=== PATIENT | female | born 1960 | race Caucasian/White ===

== ENCOUNTER 2017-04-03 12:22 | Inpatient (IN) | payer OTHER ==
[~2017-04-03] VITALS: Ht 157.5 cm; Wt 46.5 kg
[~2017-04-03 12:22] MED LIST: ALBU6.7H INH; LOMO2.5T PO
[2017-04-03 12:23] VITALS: BP 170/70; PULSE 97; RESP 22; TEMP 98.2; O2SAT 93
[2017-04-03] MEDS ORDERED: IOHEXOL 350 MG/ML 10 ML VIAL (for RAD DIAG) IVCONTRAST ONE (12:23)
--- NOTE | 2017-04-03 13:02 | RADRPT ---
EXAM DATE/TIME: 04/03/2017 12:55 [facility] COMPARISON: CHEST SINGLE AP, July 06, 2015, 10:25. INDICATIONS : Cough and shortness of breath. MEDICAL HISTORY : Carcinoma, breast. Bowel resection SURGICAL HISTORY : Appendectomy. Lumpectomy ENCOUNTER: Initial ACUITY: 2 days PAIN SCORE: 0/10 LOCATION: Bilateral chest FINDINGS: PA and lateral views of the chest demonstrate a normal-sized cardiac silhouette with stable mildly en larged central pulmonary arteries bilaterally. Lungs are hyperexpanded. No effusion, consolidation, o r pneumothorax is identified. The bones and soft tissues demonstrate no acute finding. CONCLUSION: 1. No acute cardiopulmonary abnormality is identified. 2. Hyperexpansion of the lungs could indicate obstructive airways disease. The central pulmonary yari fay remain enlarged bilaterally. Cal Castro MD on April 03, 2017 at 12:58 Board Certified Radiologist. This report was verified electronically.
[2017-04-03 13:33] LABS: AUTOMATED NEUTROPHIL # 10.7 TH/MM3 (1.8-7.7); BASOPHIL % 0.4 % (0.0-2.0); EOSINOPHIL # 0.1 TH/MM3 (0-0.4); EOSINOPHIL % 0.6 % (0.0-4.0); HEMATOCRIT 44.8 % (35.0-46.0); HEMOGLOBIN 15.3 GM/DL (11.6-15.3); LYMPH % 9.6 % (9.0-44.0); LYMPHOCYTE # 1.2 TH/MM3 (1.0-4.8); MEAN CELL VOLUME 96.3 FL (80.0-100.0); MEAN CORPUSCULAR HEMOGLOBIN 32.9 PG (27.0-34.0); MEAN CORPUSCULAR HGB CONC 34.2 % (32.0-36.0); MEAN PLATELET VOLUME 7.7 FL (7.0-11.0); MONO % 4.6 % (0.0-8.0); MONOCYTE # 0.6 TH/MM3 (0-0.9); NEUT % 84.8 % (16.0-70.0); PLATELET COUNT 248 TH/MM3 (150-450); RED BLOOD COUNT 4.66 MIL/MM3 (4.00-5.30); RED CELL DISTRIBUTION WIDTH 12.8 % (11.6-17.2); WHITE BLOOD COUNT 12.6 TH/MM3 (4.0-11.0)
[2017-04-03 13:45] LABS: PROTHROMBIN TIME - PATIENT 9.8 SEC (9.8-11.6)
[2017-04-03 13:52] LABS: BICARBONATE 24.6 MEQ/L (21.0-32.0); BLOOD UREA NITROGEN 8 MG/DL (7-18); CALCIUM 9.2 MG/DL (8.5-10.1); CHLORIDE 104 MEQ/L (98-107); CREATININE 0.53 MG/DL (0.50-1.00); GLOMERULAR FILTRATION RATE 118 ML/MIN (>89); GLUCOSE,RANDOM 109 MG/DL (74-106); SODIUM (NA) 137 MEQ/L (136-145)
[2017-04-03 13:55] LABS: TROPONIN I LESS THAN 0.02 NG/ML (0.02-0.05)
[2017-04-03] MEDS: RESP: ALBUTEROL 2.5 MG/IPRATROPIUM 0.5 MG NEB (SCH) INH ×2 (14:42→14:43)
[2017-04-03] MEDS ORDERED: SODIUM CHLORIDE 0.9% FLUSH 10 ML FLUSH IVF PRN (14:45)
[2017-04-03] MEDS ORDERED: SODIUM CHLORID 0.9% 500 ML INJ 500 ML IV ONE (14:45)
[2017-04-03] MEDS ORDERED: methylPREDNISolone SOD SUCC 125 MG/2 ML VIAL IV PUSH ONE (14:45)
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
[2017-04-03 15:00] VITALS: RESP 22; O2SAT 84
--- NOTE | 2017-04-03 15:48 | RADRPT ---
EXAM DATE/TIME: 04/03/2017 15:23 [facility] COMPARISON: CHEST PA & LAT, April 03, 2017, 12:55. INDICATIONS : Short of breath. Cough. IV CONTRAST: 50 cc Omnipaque 350 (iohexol) IV RADIATION DOSE: 5.21 CTDIvol (mGy) MEDICAL HISTORY : Cardiovascular disease. SURGICAL HISTORY : Hole repair in heart. ENCOUNTER: Initial ACUITY: 1 day PAIN SCALE: 2/10 LOCATION: chest TECHNIQUE: Volumetric scanning of the chest was performed using a pulmonary embolism protocol MIP images were re constructed. Using automated exposure control and adjustment of the mA and/or kV according to patien t size, radiation dose was kept as low as reasonably achievable to obtain optimal diagnostic quality images. DICOM format image data is available electronically for review and comparison. Follow-up recommendations for detected pulmonary nodules are based at a minimum on nodule size and pa tient risk factors according to Fleischner Society Guidelines. FINDINGS: PULMONARY ARTERIES: No filling defects are seen in the pulmonary arteries through the segmental level. However, pulmonary artery both appear to be somewhat prominent with calcification of the pulmonic valve. LUNGS: There is no consolidation or pneumothorax . No concerning pulmonary nodule is visualized. There is s ome volume loss in the left hemithorax. Minimal subpleural fibrotic changes are identified posteriorl y and posteromedially in the right apex PLEURAE: There is no pleural thickening or pleural effusion. MEDIASTINUM: There is good visualization of the great vessels of the middle mediastinum. No evidence of mediastin al or hilar adenopathy/mass. MUSCULOSKELETAL: Within normal limits for patient age. MISCELLANEOUS: The visualized upper abdominal organs demonstrate no acute abnormality. CONCLUSION: 1. No acute infiltrate. There is some volume loss in the left hemithorax which appears chronic. 2. Prominence of the pulmonary arteries bilaterally with evidence of calcification of the pulmonary v alve. Finding could be indicative of some degree of pulmonary artery hypertension 3. Minimal subpleural fibrotic/emphysematous changes isolated to the posterior and posteromedial aspe ct of the right lung apex. Mando Rodriguez MD on April 03, 2017 at 15:33 Board Certified Radiologist. This report was verified electronically.
[2017-04-03 16:28] VITALS: BP 131/71; PULSE 110; RESP 24; O2SAT 96
[2017-04-03 17:55] VITALS: BP 142/66; PULSE 100; RESP 22; O2SAT 94
[2017-04-03] MEDS ORDERED: SODIUM CHLORIDE 0.9% FLUSH 10 ML FLUSH IV FLUSH PRN ×2 (18:00→19:00)
--- NOTE | 2017-04-03 18:40 | HHI.HP ---
HPI Service Family Medicine Primary Care Physician Unknown Admission Diagnosis hypoxia, COPD exacerbation Diagnoses: International Travel<30 Days: No Contact w/Intl Traveler<30days: No Known Affected Area: No History of Present Illness Ms. Dueñas is a 56 year old with a past medical history of gastritis and recurrent diverticulitis presenting to the ED for shortness of breath. She states that she felt fine all Sunday. However, Sunday evening she started coughing. The cough is productive of clear sputum due to postnasal drip. She states that she felt like she could not breathe. She also had a runny nose. She vomited 2, nonbloody nonbilious (the first time was her dinner, the second time was water). She states that she has felt crappy today. No fever, but had chills and night sweats. No chest pain, no abdominal pain, no sore throat. Has had sick contacts at work. Of note, smokes a half pack per day or more. However, she has been cutting down. She has never been diagnosed with COPD. She does not use oxygen at home. She states that she has been feeling more short of breath lately with daily activities. No chest tightness. 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 Tobacco abuse Past Surgical History Panendoscopy 10/2015 with postop diagnosis of gastritis 06/2015 exploratory laparotomy with proctosigmoidectomy and low pelvic anastomosis, ileum resection and anterior stomach wall resection Left lumpectomy approximately 5 years ago Open-heart surgery at 1.5 and 3 years old for hole in her heart Reported Medications Reported Meds & Active Scripts Active No Active Prescriptions or Reported Medications Allergies: Coded Allergies: No Known Allergies (Unverified Adverse Reaction, Unknown, 04/03/17) Family History [id number] years old, livinghypertension [id number] years, livingCAD/cardiac stenting, hernias Maternal grandmotherPararmando's Social History Lives by herself Works in sales Smoke 1/2 PPD at least since age 14 Drinks a couple of bottles of beers everyday, last drink was Sunday night. Denies illicit drug use Physical Exam Vital Signs Vital Signs Date Time Temp Pulse Resp B/P (MAP) Pulse Ox O2 Delivery O2 Flow Rate FiO2 04/03/17 17:55 100 22 142/66 (91) 94 Nasal Cannula 2.00 04/03/17 16:28 110 24 131/71 (91) 96 Nasal Cannula 2.00 04/03/17 15:00 22 84 Room Air 04/03/17 14:59 94 Aerosol Mask 04/03/17 12:23 98.2 97 22 170/70 (103) 93 Room Air Physical Exam GENERAL: This is a well-nourished, thin patient with nasal cannula in place, in no apparent distress. SKIN: No rashes, ecchymoses or lesions. Cool and dry. HEAD: Atraumatic. Normocephalic EYES: Pupils equal round and reactive. Extraocular motions intact. No scleral icterus. No injection or drainage. ENT: Nose without bleeding, purulent drainage or septal hematoma. Throat without erythema, tonsillar hypertrophy or exudate. Uvula midline. Airway patent. NECK: Trachea midline. No JVD or lymphadenopathy. Supple, nontender, no meningeal signs. CARDIOVASCULAR: Regular rate and rhythm with a harsh holosystolic murmur without gallops, or rubs. RESPIRATORY: Diffuse expiratory wheezes. Breath sounds equal bilaterally. GASTROINTESTINAL: Abdomen soft, non-tender, nondistended. No hepato-splenomegaly , or palpable masses. No guarding. MUSCULOSKELETAL: Extremities without clubbing, cyanosis, or edema. No joint tenderness, effusion, or edema noted. No calf tenderness. NEUROLOGICAL: Awake and alert. Motor and sensory grossly within normal limits. Normal speech. Laboratory Laboratory Tests Test 04/03/17 12:35 04/03/17 14:56 White Blood Count 12.6 Red Blood Count 4.66 Hemoglobin 15.3 Hematocrit 44.8 Mean Corpuscular Volume 96.3 Mean Corpuscular Hemoglobin 32.9 Mean Corpuscular Hemoglobin Concent 34.2 Red Cell Distribution Width 12.8 Platelet Count 248 Mean Platelet Volume 7.7 Neutrophils (%) (Auto) 84.8 Lymphocytes (%) (Auto) 9.6 Monocytes (%) (Auto) 4.6 Eosinophils (%) (Auto) 0.6 Basophils (%) (Auto) 0.4 Neutrophils # (Auto) 10.7 Lymphocytes # (Auto) 1.2 Monocytes # (Auto) 0.6 Eosinophils # (Auto) 0.1 Basophils # (Auto) 0.0 CBC Comment DIFF FINAL Differential Comment Prothrombin Time 9.8 Prothromb Time International Ratio 1.0 Activated Partial Thromboplast Time 24.0 Blood Urea Nitrogen 8 Creatinine 0.53 Random Glucose 109 Calcium Level 9.2 Sodium Level 137 Potassium Level 3.8 Chloride Level 104 Carbon Dioxide Level 24.6 Anion Gap 8 Estimat Glomerular Filtration Rate 118 Total Creatine Kinase 269 Creatine Kinase MB 5.0 Creatine Kinase MB % 1.9 Troponin I LESS THAN 0.02 B-Type Natriuretic Peptide 103 Lactic Acid Level 0.9 Date/Time Source Procedure Growth Status 04/03/17 14:56 Nasal Aspirate Influenza Types A,B Antigen (ANASTACIO) - Final NEGATIVE FOR FLU A AND B ANTIGEN.... Complete Result Diagram: 04/03/17 1235 04/03/[address] Angiography 04/03/17 1436 Signed Impressions: Service Date/Time: Monday, April 03, 2017 15:23 - CONCLUSION: 1. No acute infiltrate. There is some volume loss in the left hemithorax which appears chronic. 2. Prominence of the pulmonary arteries bilaterally with evidence of calcification of the pulmonary valve. Finding could be indicative of some degree of pulmonary artery hypertension 3. Minimal subpleural fibrotic/emphysematous changes isolated to the posterior and posteromedial aspect of the right lung apex. Mando Rodriguez MD Chest X-Ray 04/03/17 1227 Signed Impressions: Service Date/Time: Monday, April 03, 2017 12:55 - CONCLUSION: 1. No acute cardiopulmonary abnormality is identified. 2. Hyperexpansion of the lungs could indicate obstructive airways disease. The central pulmonary arteries remain enlarged bilaterally. MD Lalit Tapia VTE Risk Assessment Capfridai VTE Risk Assessment: Mod/High Risk (score >= 2) Caprini Risk Assessment Model Point Value = 1 Point Value = 2 Point Value = 3 Point Value = 5 Age 41-60 Minor surgery BMI > 25 kg/m2 Swollen legs Varicose veins or History of unexplained or recurrent spontaneous Oral contraceptives or hormone replacement Sepsis (< 1 month) Serious lung disease, including pneumonia (< 1 month) Abnormal pulmonary function Acute myocardial infarction Congestive heart failure (< 1 month) History of inflammatory bowel disease Medical patient at bed rest Age 61-74 Arthroscopic surgery Major open surgery (> 45 min) Laparoscopic surgery (> 45 min) Malignancy Confined to bed (> 72 hours) Immobilizing plaster cast Central venous access Age >= 75 History of VTE Family history of VTE Factor V Leiden Prothrombin [id number] Lupus anticoagulant Anticardiolipin antibodies Elevated serum homocysteine Heparin-induced thrombocytopenia Other congenital or acquired thrombophilia Stroke (< 1 month) Elective arthroplasty Hip, pelvis, or leg fracture Acute spinal cord injury (< 1 month) Prophylaxis Regimen Total Risk Factor Score Risk Level Prophylaxis Regimen 0-1 Low Early ambulation 2 Moderate Order ONE of the following: *Sequential Compression Device (SCD) *Heparin 5000 units SQ BID 3-4 Higher Order ONE of the following medications: *Heparin 5000 units SQ TID *Enoxaparin/Lovenox 40 mg SQ daily (WT < 150 kg, CrCl > 30 mL/min) *Enoxaparin/Lovenox 30 mg SQ daily (WT < 150 kg, CrCl > 10-29 mL/min) *Enoxaparin/Lovenox 30 mg SQ BID (WT < 150 kg, CrCl > 30 mL/min) AND/OR *Sequential Compression Device (SCD) 5 or more Highest Order ONE of the following medications: *Heparin 5000 units SQ TID (Preferred with Epidurals) *Enoxaparin/Lovenox 40 mg SQ daily (WT < 150 kg, CrCl > 30 mL/min) *Enoxaparin/Lovenox 30 mg SQ daily (WT < 150 kg, CrCl > 10-29 mL/min) *Enoxaparin/Lovenox 30 mg SQ BID (WT < 150 kg, CrCl > 30 mL/min) AND *Sequential Compression Device (SCD) Assessment and Plan Assessment and Plan 56-year-old white female with a past medical history of tobacco abuse presenting with shortness of breath. She is being admitted to our inpatient service for possible COPD exacerbation. Code Status Full code Discussed Condition With Dr. Rosado Problem List: (1) COPD exacerbation ICD Codes: J44.1 - Chronic obstructive pulmonary disease with (acute) exacerbation Status: Acute Plan: Patient with shortness of breath and hypoxia (88-91% on RA according to documentation) upon admission. Long history of tobacco use. Chest x-ray shows hyperexpansion of the lungs. These symptoms/signs point to a possible COPD exacerbation. PE ruled out by CTA. Chest x-ray and CTA on admission also showed central pulmonary arteries are enlarged bilaterally along with evidence of calcification of the pulmonary valve. - Patient given DuoNeb's in the ED along with methylprednisolone 125 mg IV - Started on prednisone 40 mg p.o. daily - Azithromycin 500 mg p.o. once today and will continue with 250 mg daily - Ceftriaxone 1 g IV daily - Albuterol and DuoNeb's - Home walk test to be done in the a.m. (2) Elevated creatine kinase ICD Codes: R74.8 - Abnormal levels of other serum enzymes Status: Acute Plan: CK elevated at 206. CK-MB elevated at 5.0. - Will continue to monitor (3) Tobacco abuse ICD Codes: Z72.0 - Tobacco use Status: Chronic Plan: Patient with a long history of tobacco abuse. More than half pack per day for 42 years - Nicotine patch (4) Alcohol use ICD Codes: Z78.9 - Other specified health status Status: Chronic Plan: Patient states that she drinks a couple of beers a day -Will start CIWA protocol and escalate as needed (5) FEN Status: Acute Plan: Fluids: tolerating PO Electrolytes: monitor and replete as needed Nutrition: Heart healthy diet DVT Prophylaxis: Early ambulation. Lovenox 40mg subQ q24hr GI Prophylaxis: Protonix 40mg qD Physician Certification 2 Midnight Certification Type: Admission for Inpatient Services Order for Inpatient Services The services are ordered in accordance with Medicare regulations or non- Medicare payer requirements, as applicable. In the case of services not specified as inpatient-only, they are appropriately provided as inpatient services in accordance with the 2-midnight benchmark. Estimated LOS (days): 2 days is the estimated time the patient will need to remain in the hospital, assuming treatment plan goals are met and no additional complications. Post-Hospital Plan: Home Layne Donovan MD R1 Apr 03, 2017 18:40
[2017-04-03] MEDS ORDERED: NALOXONE HCL 0.4 MG/ML AMP IV PUSH PRN (19:00)
[2017-04-03] MEDS ORDERED: LORazepam 1 MG TAB PO PRN (19:00)
[2017-04-03] MEDS ORDERED: FLUMAZENIL 0.5 MG/5 ML VIAL IV PUSH PRN (19:00)
[2017-04-03] MEDS ORDERED: LORazepam 2 MG/ML VIAL IV PUSH PRN ×4 (19:00)
[2017-04-03] MEDS ORDERED: LORazepam 2 MG TAB PO PRN (19:00)
[2017-04-03] MEDS ORDERED: ACETAMINOPHEN 325 MG TAB PO PRN (20:00)
[2017-04-03] MEDS ORDERED: ONDANSETRON HCL 4 MG/2 ML VIAL IVP PRN (20:00)
[2017-04-03] MEDS: RESP: ALBUTEROL 2.5 MG/IPRATROPIUM 0.5 MG NEB (SCH) NEB (20:25)
[2017-04-03 20:27] VITALS: O2SAT 94
[2017-04-03] MEDS: SODIUM CHLOR 0.9% 1000 ML INJ 1,000 ML IV SCH (20:41)
[2017-04-03] MEDS: PANTOPRAZOLE SOD 40 MG DELAYED RELEASE TAB PO SCH (20:42)
[2017-04-03] MEDS ORDERED: SODIUM CHLORIDE 0.9% FLUSH 10 ML FLUSH IV FLUSH SCH (21:00)
[2017-04-03] MEDS ORDERED: AZITHROMYCIN 250 MG TAB PO ONE (21:00)
[2017-04-03] MEDS ORDERED: cefTRIAXone INJ 1,000 MG in SODIUM CHLORIDE 0.9% INJ 100 ML IV SCH (21:00)
[2017-04-03] MEDS ORDERED: ENOXAPARIN SODIUM 40 MG/0.4 ML SYRINGE SQ SCH (21:00)
[2017-04-03] MEDS ORDERED: RESP: ALBUTEROL 2.5 MG/3 ML NEB (PRN) NEB (21:00)
[2017-04-03] MEDS: SODIUM CHLORIDE 0.9% FLUSH 10 ML FLUSH IV FLUSH SCH (21:16)
[2017-04-04 00:22] VITALS: BP 112/56; PULSE 86; RESP 18; TEMP 98.8; O2SAT 97
[2017-04-04 04:02] VITALS: BP 147/74; PULSE 84; RESP 18; TEMP 98.8; O2SAT 98
[2017-04-04 05:17] LABS: AUTOMATED NEUTROPHIL # 5.2 TH/MM3 (1.8-7.7); BASOPHIL % 0.2 % (0.0-2.0); HEMATOCRIT 35.9 % (35.0-46.0); HEMOGLOBIN 12.3 GM/DL (11.6-15.3); LYMPH % 11.2 % (9.0-44.0); LYMPHOCYTE # 0.7 TH/MM3 (1.0-4.8); MEAN CELL VOLUME 96.6 FL (80.0-100.0); MEAN CORPUSCULAR HEMOGLOBIN 33.1 PG (27.0-34.0); MEAN CORPUSCULAR HGB CONC 34.3 % (32.0-36.0); MEAN PLATELET VOLUME 7.9 FL (7.0-11.0); MONOCYTE # 0.4 TH/MM3 (0-0.9); NEUT % 82.6 % (16.0-70.0); PLATELET COUNT 195 TH/MM3 (150-450); RED BLOOD COUNT 3.71 MIL/MM3 (4.00-5.30); WHITE BLOOD COUNT 6.3 TH/MM3 (4.0-11.0)
[2017-04-04 05:33] LABS: BICARBONATE 26.7 MEQ/L (21.0-32.0); CALCIUM 8.3 MG/DL (8.5-10.1); CREATININE 0.45 MG/DL (0.50-1.00)
[2017-04-04] MEDS: SODIUM CHLOR 0.9% 1000 ML INJ 1,000 ML IV SCH (06:20)
[2017-04-04] MEDS: RESP: ALBUTEROL 2.5 MG/IPRATROPIUM 0.5 MG NEB (SCH) NEB ×2 (07:37→16:51)
[2017-04-04 08:06] VITALS: BP 102/56; PULSE 80; RESP 18; TEMP 97.6; O2SAT 95
[2017-04-04] MEDS: PANTOPRAZOLE SOD 40 MG DELAYED RELEASE TAB PO SCH (08:35)
[2017-04-04] MEDS: SODIUM CHLORIDE 0.9% FLUSH 10 ML FLUSH IV FLUSH SCH (08:37)
[2017-04-04] MEDS ORDERED: NICOTINE 14 MG/24 HR PATCH T-DERMAL SCH (09:00)
[2017-04-04] MEDS ORDERED: predniSONE 20 MG TAB PO SCH (09:00)
[2017-04-04] MEDS ORDERED: AZITHROMYCIN 250 MG TAB PO SCH (09:00)
[2017-04-04 09:26] VITALS: O2SAT 96
--- NOTE | 2017-04-04 11:18 | HHI.HP ---
HPI Service Family Medicine Primary Care Physician Unknown Admission Diagnosis hypoxia, COPD exacerbation Diagnoses: (1) COPD exacerbation (2) Elevated creatine kinase (3) Tobacco abuse (4) Alcohol use (5) FEN International Travel<30 Days: No Contact w/Intl Traveler<30days: No Known Affected Area: No History of Present Illness Ms. Dueñas is a 56 year old with a past medical history of gastritis and recurrent diverticulitis presenting to the ED for shortness of breath. She states that she felt fine all Sunday. However, Sunday evening she started coughing. The cough is productive of clear sputum due to postnasal drip. She states that she felt like she could not breathe. She also had a runny nose. She vomited 2, nonbloody nonbilious (the first time was her dinner, the second time was water). She states that she has felt poorly the day of admission. No fever, but had chills and night sweats. No chest pain, no abdominal pain, no sore throat. Has had sick contacts at work. Of note, smokes a half pack per day or more. However, she has been cutting down. She has never been diagnosed with COPD. She does not use oxygen at home. She states that she has been feeling more short of breath lately with daily activities. No chest tightness. Today she feels much better and requested discharge home. She was walking in the hospital and even was able to walk distances and off the unit without problems. She still has her cough and sinus sxs but is better otherwise. 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 Tobacco abuse Past Surgical History Panendoscopy 10/2015 with postop diagnosis of gastritis 06/2015 exploratory laparotomy with proctosigmoidectomy and low pelvic anastomosis, ileum resection and anterior stomach wall resection Left lumpectomy approximately 5 years ago Open-heart surgery at 1.5 and 3 years old for hole in her heart Allergies: Coded Allergies: No Known Allergies (Unverified Adverse Reaction, Unknown, 04/03/17) Family History [id number] years old, livinghypertension [id number] years, livingCAD/cardiac stenting, hernias Maternal grandmotherParkinson's Social History Lives by herself Works in sales Smoke 1/2 PPD at least since age 14 Drinks a couple of bottles of beers everyday, last drink was Sunday night. Denies illicit drug use Physical Exam Vital Signs Vital Signs Date Time Temp Pulse Resp B/P (MAP) Pulse Ox O2 Delivery O2 Flow Rate FiO2 04/04/17 09:26 96 Nasal Cannula 2.00 04/04/17 08:06 97.6 80 18 102/56 (71) 95 04/04/17 07:40 Nasal Cannula 2.00 04/04/17 04:02 98.8 84 18 147/74 (98) 98 04/04/17 00:22 98.8 86 18 112/56 (74) 97 04/03/17 20:27 94 Nasal Cannula 2.00 04/03/17 17:55 100 22 142/66 (91) 94 Nasal Cannula 2.00 04/03/17 16:28 110 24 131/71 (91) 96 Nasal Cannula 2.00 04/03/17 15:00 22 84 Room Air 04/03/17 14:59 94 Aerosol Mask 04/03/17 12:23 98.2 97 22 170/70 (103) 93 Room Air Physical Exam GENERAL: This is a well-nourished, thin patient with nasal cannula in place but walking without one, in no apparent distress. SKIN: No rashes, ecchymoses or lesions. Cool and dry. HEAD: Atraumatic. Normocephalic EYES: Pupils equal round and reactive. Extraocular motions intact. No scleral icterus. No injection or drainage. ENT: Nose without bleeding, purulent drainage or septal hematoma. Throat without erythema, tonsillar hypertrophy or exudate. Uvula midline. Airway patent. NECK: Trachea midline. No JVD or lymphadenopathy. Supple, nontender, no meningeal signs. CARDIOVASCULAR: Regular rate and rhythm with a harsh holosystolic murmur without gallops, or rubs. RESPIRATORY: some expiratory wheezes scattered. Breath sounds equal bilaterally. moving air well GASTROINTESTINAL: Abdomen soft, non-tender, nondistended. No hepato-splenomegaly , or palpable masses. No guarding. MUSCULOSKELETAL: Extremities without clubbing, cyanosis, or edema. No joint tenderness, effusion, or edema noted. No calf tenderness. NEUROLOGICAL: Awake and alert. Motor and sensory grossly within normal limits. Normal speech. Laboratory Laboratory Tests Test 04/03/17 12:35 04/03/17 14:56 04/04/17 03:53 White Blood Count 12.6 6.3 Red Blood Count 4.66 3.71 Hemoglobin 15.3 12.3 Hematocrit 44.8 35.9 Mean Corpuscular Volume 96.3 96.6 Mean Corpuscular Hemoglobin 32.9 33.1 Mean Corpuscular Hemoglobin Concent 34.2 34.3 Red Cell Distribution Width 12.8 13.0 Platelet Count 248 195 Mean Platelet Volume 7.7 7.9 Neutrophils (%) (Auto) 84.8 82.6 Lymphocytes (%) (Auto) 9.6 11.2 Monocytes (%) (Auto) 4.6 6.0 Eosinophils (%) (Auto) 0.6 0.0 Basophils (%) (Auto) 0.4 0.2 Neutrophils # (Auto) 10.7 5.2 Lymphocytes # (Auto) 1.2 0.7 Monocytes # (Auto) 0.6 0.4 Eosinophils # (Auto) 0.1 0.0 Basophils # (Auto) 0.0 0.0 CBC Comment DIFF FINAL DIFF FINAL Differential Comment Prothrombin Time 9.8 Prothromb Time International Ratio 1.0 Activated Partial Thromboplast Time 24.0 Blood Urea Nitrogen 8 8 Creatinine 0.53 0.45 Random Glucose 109 103 Calcium Level 9.2 8.3 Sodium Level 137 140 Potassium Level 3.8 3.8 Chloride Level 104 107 Carbon Dioxide Level 24.6 26.7 Anion Gap 8 6 Estimat Glomerular Filtration Rate 118 143 Total Creatine Kinase 269 Creatine Kinase MB 5.0 Creatine Kinase MB % 1.9 Troponin I LESS THAN 0.02 B-Type Natriuretic Peptide 103 Lactic Acid Level 0.9 Date/Time Source Procedure Growth Status 04/03/17 14:56 Nasal Aspirate Influenza Types A,B Antigen (ANASTACIO) - Final NEGATIVE FOR FLU A AND B ANTIGEN.... Complete Result Diagram: 04/04/17 0353 04/04/17 [address] Angiography 04/03/17 1436 Signed Impressions: Service Date/Time: Monday, April 03, 2017 15:23 - CONCLUSION: 1. No acute infiltrate. There is some volume loss in the left hemithorax which appears chronic. 2. Prominence of the pulmonary arteries bilaterally with evidence of calcification of the pulmonary valve. Finding could be indicative of some degree of pulmonary artery hypertension 3. Minimal subpleural fibrotic/emphysematous changes isolated to the posterior and posteromedial aspect of the right lung apex. Mando Rodriguez MD Chest X-Ray 04/03/17 1227 Signed Impressions: Service Date/Time: Monday, April 03, 2017 12:55 - CONCLUSION: 1. No acute cardiopulmonary abnormality is identified. 2. Hyperexpansion of the lungs could indicate obstructive airways disease. The central pulmonary arteries remain enlarged bilaterally. MD Lalit Tapia VTE Risk Assessment Caprini VTE Risk Assessment: Mod/High Risk (score >= 2) Caprini Risk Assessment Model Point Value = 1 Point Value = 2 Point Value = 3 Point Value = 5 Age 41-60 Minor surgery BMI > 25 kg/m2 Swollen legs Varicose veins or History of unexplained or recurrent spontaneous Oral contraceptives or hormone replacement Sepsis (< 1 month) Serious lung disease, including pneumonia (< 1 month) Abnormal pulmonary function Acute myocardial infarction Congestive heart failure (< 1 month) History of inflammatory bowel disease Medical patient at bed rest Age 61-74 Arthroscopic surgery Major open surgery (> 45 min) Laparoscopic surgery (> 45 min) Malignancy Confined to bed (> 72 hours) Immobilizing plaster cast Central venous access Age >= 75 History of VTE Family history of VTE Factor V Leiden Prothrombin [id number] Lupus anticoagulant Anticardiolipin antibodies Elevated serum homocysteine Heparin-induced thrombocytopenia Other congenital or acquired thrombophilia Stroke (< 1 month) Elective arthroplasty Hip, pelvis, or leg fracture Acute spinal cord injury (< 1 month) Prophylaxis Regimen Total Risk Factor Score Risk Level Prophylaxis Regimen 0-1 Low Early ambulation 2 Moderate Order ONE of the following: *Sequential Compression Device (SCD) *Heparin 5000 units SQ BID 3-4 Higher Order ONE of the following medications: *Heparin 5000 units SQ TID *Enoxaparin/Lovenox 40 mg SQ daily (WT < 150 kg, CrCl > 30 mL/min) *Enoxaparin/Lovenox 30 mg SQ daily (WT < 150 kg, CrCl > 10-29 mL/min) *Enoxaparin/Lovenox 30 mg SQ BID (WT < 150 kg, CrCl > 30 mL/min) AND/OR *Sequential Compression Device (SCD) 5 or more Highest Order ONE of the following medications: *Heparin 5000 units SQ TID (Preferred with Epidurals) *Enoxaparin/Lovenox 40 mg SQ daily (WT < 150 kg, CrCl > 30 mL/min) *Enoxaparin/Lovenox 30 mg SQ daily (WT < 150 kg, CrCl > 10-29 mL/min) *Enoxaparin/Lovenox 30 mg SQ BID (WT < 150 kg, CrCl > 30 mL/min) AND *Sequential Compression Device (SCD) Assessment and Plan Assessment and Plan 56-year-old white female with a past medical history of tobacco abuse presenting with shortness of breath. She is being admitted to our inpatient service for COPD exacerbation. recommended flu shot and she refuses "I hate needles" explained this could be life saving Problem List: (1) COPD exacerbation ICD Codes: J44.1 - Chronic obstructive pulmonary disease with (acute) exacerbation Status: Acute Plan: Patient with shortness of breath and hypoxia (88-91% on RA according to documentation) upon admission. Long history of tobacco use. Chest x-ray shows hyperexpansion of the lungs. These symptoms/signs point to a COPD exacerbation. PE ruled out by CTA. Chest x-ray and CTA on admission also showed central pulmonary arteries are enlarged bilaterally along with evidence of calcification of the pulmonary valve. These changes are probably related to her childhood surgery. - Patient given DuoNeb's in the ED along with methylprednisolone 125 mg IV - Started on prednisone 40 mg p.o. daily - Azithromycin 500 mg p.o. once today and will continue with 250 mg daily - Ceftriaxone 1 g IV daily - Albuterol and DuoNeb's - Home walk test to be done today. -she feels well and wants to go home today (2) Elevated creatine kinase ICD Codes: R74.8 - Abnormal levels of other serum enzymes Status: Acute Plan: CK elevated at 206. CK-MB elevated at 5.0. - Will continue to monitor (3) Tobacco abuse ICD Codes: Z72.0 - Tobacco use Status: Chronic Plan: Patient with a long history of tobacco abuse. More than half pack per day for 42 years she is motivated to quit - Nicotine patch (4) Alcohol use ICD Codes: Z78.9 - Other specified health status Status: Chronic Plan: Patient states that she drinks a couple of beers a day -Will start CIWA protocol and escalate as needed (5) FEN Status: Acute Plan: Fluids: tolerating PO Electrolytes: monitor and replete as needed Nutrition: Heart healthy diet DVT Prophylaxis: Early ambulation. Lovenox 40mg subQ q24hr GI Prophylaxis: Protonix 40mg qD Mare Townsend MD Apr 04, 2017 11:18
[2017-04-04 11:38] VITALS: BP 107/56; PULSE 90; RESP 18; TEMP 97.8; O2SAT 94
[2017-04-04] MEDS ORDERED: MEDR4PAK PO (15:04)
[2017-04-04] MEDS ORDERED: AZIT250T3 PO (15:04)
--- NOTE | 2017-04-04 15:05 | HHI.DCPOC ---
Discharge Care Plan Diagnosis: (1) COPD exacerbation Goals to Promote Your Health * To prevent worsening of your condition and complications * To maintain your health at the optimal level Directions to Meet Your Goals Take your medications as prescribed Follow your dietary instruction Follow activity as directed Keep your appointments as scheduled Take your immunizations and boosters as scheduled If your symptoms worsen call your PCP, if no PCP go to Urgent Care Center or Emergency Room Smoking is Dangerous to Your Health. Avoid second hand smoke Call the 24-hour hour crisis hotline for domestic abuse at Coty Boyle MD R1 Apr 04, 2017 15:05
[2017-04-04] MEDS ORDERED: INSPIREASE DRUG1 EA (16:49)
[2017-04-04] MEDS ORDERED: ALBUAER3 INH (16:49)
[2017-04-04] MEDS ORDERED: REMOVE OLD PATCH T-DERMAL SCH (21:00)
--- NOTE | 2017-04-04 22:12 | EKG ---
Date Performed: 04/03/2017 Time Performed: 12:38:12 PTAGE: 56 years EKG: Sinus rhythm POSSIBLE RIGHT ATRIAL ENLARGEMENT POSSIBLE LEFT ATRIAL ENLARGEMENT RIGHT BUNDLE BRANCH BLOCK LEFT PO STERIOR FASCICULAR BLOCK ABNORMAL ECG PREVIOUS TRACING : 08/26/2014 08.30 Since the prior tracing, there has been no significant rudolph DOCTOR: Hans Garcia Interpretating Date/Time 04/04/2017 22:10:46
== END 2017-04-04 18:49 | disposition home or self-care (01) | DRG 192 ==
LOC: NEPE 12:22 → NEDA 17:03 → NEDH 21:03 → NEPGCP 22:54
PROVIDERS: ADMIT Family Medicine; ATTEND Family Medicine
DX: J44.1 Chronic obstructive pulmonary disease with (acute) exacerbation (principal); F31.9 Bipolar disorder, unspecified; R09.02 Hypoxemia; F17.210 Nicotine dependence, cigarettes, uncomplicated; Z87.74 Personal history of (corrected) congenital malformations of heart and circulatory system
CPT/HCPCS: 71046; 71275; 80048; 82550; 82552; 83605; 83880; 84484; 85025; 85610; 85730; 87804; 93005; 94150; 94618; 94640; 94664; 94667; 96361; 96374; J0696; J1650; J2930; J7030; J7040; J7512; Q9967

== ENCOUNTER 2017-06-12 15:43 | Emergency (ER) | payer OTHER ==
[~2017-06-12 15:43] MED LIST changes: -ALBU6.7H INH; +ALBUAER3 INH; +AZIT250T3 PO; +INSPIREASE DRUG1 EA; -LOMO2.5T PO; +MEDR4PAK PO
[2017-06-12 15:47] VITALS: BP 126/63; PULSE 80; RESP 16; TEMP 98.4; O2SAT 99
[2017-06-12 17:00] LABS: AUTOMATED NEUTROPHIL # 3.8 TH/MM3 (1.8-7.7); BASOPHIL # 0.1 TH/MM3 (0-0.2); BASOPHIL % 0.9 % (0.0-2.0); EOSINOPHIL # 0.1 TH/MM3 (0-0.4); HEMATOCRIT 44.3 % (35.0-46.0); HEMOGLOBIN 15.1 GM/DL (11.6-15.3); LYMPH % 30.7 % (9.0-44.0); MEAN CELL VOLUME 95.5 FL (80.0-100.0); MEAN CORPUSCULAR HEMOGLOBIN 32.6 PG (27.0-34.0); MEAN CORPUSCULAR HGB CONC 34.2 % (32.0-36.0); MEAN PLATELET VOLUME 7.6 FL (7.0-11.0); MONO % 8.5 % (0.0-8.0); MONOCYTE # 0.5 TH/MM3 (0-0.9); NEUT % 58.9 % (16.0-70.0); PLATELET COUNT 267 TH/MM3 (150-450); RED BLOOD COUNT 4.64 MIL/MM3 (4.00-5.30); RED CELL DISTRIBUTION WIDTH 13.4 % (11.6-17.2); WHITE BLOOD COUNT 6.4 TH/MM3 (4.0-11.0)
[2017-06-12 17:19] LABS: ALBUMIN 4.8 GM/DL (3.4-5.0); ALT (GPT) 32 U/L (10-53); AST (GOT) 18 U/L (15-37); BICARBONATE 23.2 MEQ/L (21.0-32.0); BLOOD UREA NITROGEN 15 MG/DL (7-18); CALCIUM 9.7 MG/DL (8.5-10.1); CHLORIDE 102 MEQ/L (98-107); CREATININE 0.78 MG/DL (0.50-1.00); GLOMERULAR FILTRATION RATE 76 ML/MIN (>89); GLUCOSE,RANDOM 84 MG/DL (74-106); SODIUM (NA) 136 MEQ/L (136-145)
[2017-06-12 17:22] LABS: ALKALINE PHOSPHATASE 108 U/L (45-117); TOTAL BILIRUBIN ADULT 0.9 MG/DL (0.2-1.0); TOTAL PROTEIN 8.8 GM/DL (6.4-8.2)
[2017-06-12 17:23] LABS: BILIRUBIN, URINE NEG (NEG); BLOOD, URINE NEG (NEG); GLUCOSE,URINE NEG (NEG); HYALINE CAST, URINE 2 /lpf (RARE); KETONE, URINE 40 mg/dL (NEG); MUCUS URINE FEW /lpf (OCC); NITRITE,URINE NEG (NEG); PH, URINE 5.5 (5.0-8.5); SQUAMOUS EPITHELIAL CELL URINE 1 /hpf (0-5); URINE COLOR YELLOW (YELLW/STRAW); URINE LEUKOCYTE ESTERASE NEG (NEG)
[2017-06-12] MEDS ORDERED: SODIUM CHLOR 0.9% 1000 ML INJ 1,000 ML IV SCH (18:03)
[2017-06-12] MEDS ORDERED: ONDANSETRON HCL 4 MG/2 ML VIAL IVP ONE (18:15)
[2017-06-12 18:20] VITALS: BP 151/61; PULSE 73; RESP 18; O2SAT 98
[2017-06-12] MEDS ORDERED: IOHEXOL 350 MG/ML 10 ML VIAL (for RAD DIAG) IVCONTRAST ONE (19:24)
--- NOTE | 2017-06-12 19:59 | RADRPT ---
EXAM DATE/TIME: 06/12/2017 19:24 [facility] COMPARISON: CT ABDOMEN & PELVIS W CONTRAST, July 17, 2015, 18:58. INDICATIONS : Diffuse abdomen pain for two days. IV CONTRAST: 80 cc Omnipaque 350 (iohexol) IV ORAL CONTRAST: No oral contrast ingested. RADIATION DOSE: 6.57 CTDIvol (mGy) MEDICAL HISTORY : Cardiovascular disease. Diverticulitis. SURGICAL HISTORY : Tubal ligation. Colon resection. ENCOUNTER: Initial ACUITY: 2 days PAIN SCALE: 7/10 LOCATION: Bilateral abdomen TECHNIQUE: Volumetric scanning of the abdomen and pelvis was performed. Using automated exposure control and ad justment of the mA and/or kV according to patient size, radiation dose was kept as low as reasonably achievable to obtain optimal diagnostic quality images. DICOM format image data is available electro nically for review and comparison. FINDINGS: No acute abnormality seen of the liver, spleen, pancreas, adrenal glands or kidneys. 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 There is a long-term stable 2.1 cm nodule the left adrenal gland. No obstruction or acute inflammatory changes are seen of the gastrointestinal tract. There are rectos igmoid and right-sided colon anastomotic staple lines again seen. There is fluid and air in the vagina, nonspecific. Visualized lung bases are clear. No acute bony abnormality demonstrated. A left buttock subcutaneous sebaceous cyst is again noted. CONCLUSION: 1. Nonspecific fluid and air in the vagina. An infectious etiology would be in the differential and p lease correlate clinically. 2. No obstruction or other evidence of an acute inflammatory process. 3. Stable left adrenal nodule and left renal angiomyolipoma. Cal Alvarez MD on June 12, 2017 at 19:52 Board Certified Radiologist. This report was verified electronically.
[2017-06-12] MEDS ORDERED: TRAM50TA PO (20:17)
[2017-06-12] MEDS ORDERED: METR-1 PO (20:17)
[2017-06-12] MEDS ORDERED: ZOFR4TAB3 SL (20:17)
--- NOTE | 2017-06-12 20:27 | PD ---
HPI Chief Complaint: Abdominal Pain Time Seen by Provider: 17:58 Travel History International Travel<30 days: No Contact w/Intl Traveler<30days: No Traveled to known affect area: No History of Present Illness HPI 56-year-old female that presents to the ED for evaluation of abdominal pain and nausea and vomiting and diarrhea. Patient has a history of diverticulitis with resection by Dr. Hurst 2 years ago. Per patient she has been doing fine since the surgery but has had diarrhea that has been chronic for her. Per patient for the past 3 days she has been having nausea vomiting diarrhea with abdominal pain. Per patient it comes and goes. She has been short to make herself throw up with no improvement. Per patient abdominal pain is throughout. She states that the bowel movements have been liquidy and more frequent than they used to be. She uses a diaper because of this. Denies any vaginal discharge or bleeding. Per patient the pain when he comes is 7 out of 10. She went to see her doctor today who is a resident here at [facility] and recommended that she comes here to get evaluated for a CT scan secondary to her history. She agreed to come and she is here for evaluation of this. PFSH Past Medical History Anxiety: Yes Depression: Yes Cancer: No Cardiovascular Problems: Yes (HEART MURMUR, CONGENITAL HOLE (REPAIRED)) Diabetes: No Diminished Hearing: No Diverticulitis: Yes Endocrine: No Gastrointestinal Disorders: Yes (DIVERTICULITIS (CURRENTLY ACTIVE), COLON POLYPS) Glaucoma: No Genitourinary: No Hepatitis: No Hiatal Hernia: No Hypertension: No Immune Disorder: No Medical other: No Musculoskeletal: Yes Neurologic: Yes (VERTIGO) Psychiatric: Yes (ANXIETY) Reproductive: No Respiratory: No Immunizations Current: Yes Migraines: Yes Thyroid Disease: No Tetanus Vaccination: < 5 Years Influenza Vaccination: No ?: Not : 2 Para: 2 Miscarriage: 0 : 0 Tubal Ligation: Yes Past Surgical History Abdominal Surgery: Yes (COLON SX 2015) AICD: No Body Medical Devices: PATCH OER HOLE IN HEART Cardiac Surgery: Yes (HOLE IN HEART REPAIR 17 MONTHS AND 3 YEARS OLD) Ear Surgery: No Endocrine Surgery: No Eye Surgery: No Genitourinary Surgery: No Gynecologic Surgery: Yes (TL) Joint Replacement: No Neurologic Surgery: No Oral Surgery: No Pacemaker: No Thoracic Surgery: Yes (LUMPECTOMY R CHEST 2008) Other Surgery: Yes Social History Alcohol Use: Yes (FEW BEERS DAILY) Tobacco Use: Yes (1/2 PPD) Substance Use: Yes (marijuana ) Allergies-Medications (Allergen,Severity, Reaction): Coded Allergies: No Known Allergies (Unverified Adverse Reaction, Unknown, 06/12/17) Reported Meds & Prescriptions Reported Meds & Active Scripts Active Tramadol (Tramadol HCl) 50 Mg Tab 50 Mg PO Q6H PRN Zofran Odt (Ondansetron Odt) 4 Mg Tab 4 Mg SL Q6HR PRN Flagyl (Metronidazole) 500 Mg Tab 500 Mg PO BID 10 Days Inspirease Drug Delivery (Spacer/Device For Mdi) 1 Ea Mis Ea .XX DIRECTED Administer spacer to be used with inhaler covered by insurance. Proair Hfa 8.5 GM Inh (Albuterol Sulfate) 90 Mcg/Act Aer 2 Puff INH Q6H Two puffs every 6 hours until seen by PCP. 108 mcg/actuation Review of Systems Except as stated in HPI: all other systems reviewed are Neg Physical Exam Narrative GENERAL: SKIN: Warm and dry. HEAD: Atraumatic. Normocephalic. EYES: Pupils equal and round. No scleral icterus. No injection or drainage. ENT: No nasal bleeding or discharge. Mucous membranes pink and moist. NECK: Trachea midline. No JVD. CARDIOVASCULAR: Regular rate and rhythm. RESPIRATORY: No accessory muscle use. Clear to auscultation. Breath sounds equal bilaterally. GASTROINTESTINAL: Abdomen soft, tender to palpation in the lower abdomen, nondistended. Hepatic and splenic margins not palpable. MUSCULOSKELETAL: Extremities without clubbing, cyanosis, or edema. No obvious deformities. Full range of motion of the upper and lower extremities bilaterally. 2+ pulses bilaterally. NEUROLOGICAL: Awake and alert. No obvious cranial nerve deficits. Motor grossly within normal limits. Five out of 5 muscle strength in the arms and legs. Normal speech. PSYCHIATRIC: Appropriate mood and affect; insight and judgment normal. Data Data Last Documented VS Vital Signs Date Time Temp Pulse Resp B/P (MAP) Pulse Ox O2 Delivery O2 Flow Rate FiO2 06/12/17 20:19 06/12/17 18:20 73 18 98 Room Air 06/12/17 15:47 98.4 Orders Orders Complete Blood Count With Diff (06/12/17 15:50) Comprehensive Metabolic Panel (06/12/17 15:50) Lipase (06/12/17 15:50) Urinalysis - C+S If Indicated (06/12/17 15:50) Ct Abd/Pel W Iv Contrast(Rout) (06/12/17 18:03) Iv Access Insert/Monitor (06/12/17 18:03) Ondansetron Inj (Zofran Inj) (06/12/17 18:15) Sodium Chlor 0.9% 1000 Ml Inj (Ns 1000 M (06/12/17 18:03) Iohexol 350 Inj (Omnipaque 350 Inj) (06/12/17 19:24) Ed Discharge Order (06/12/17 20:17) Labs Laboratory Tests Test 06/12/17 16:25 06/12/17 16:34 Urine Color YELLOW Urine Turbidity CLEAR Urine pH 5.5 Urine Specific [place] 1.029 Urine Protein TRACE mg/dL Urine Glucose (UA) NEG mg/dL Urine Ketones 40 mg/dL Urine Occult Blood NEG Urine Nitrite NEG Urine Bilirubin NEG Urine Urobilinogen LESS THAN 2.0 MG/DL Urine Leukocyte Esterase NEG Urine WBC LESS THAN 1 /hpf Urine Squamous Epithelial Cells 1 /hpf Urine Hyaline Casts 2 /lpf Urine Mucus FEW /lpf Microscopic Urinalysis Comment CULT NOT INDICATED White Blood Count 6.4 TH/MM3 Red Blood Count 4.64 MIL/MM3 Hemoglobin 15.1 GM/DL Hematocrit 44.3 % Mean Corpuscular Volume 95.5 FL Mean Corpuscular Hemoglobin 32.6 PG Mean Corpuscular Hemoglobin Concent 34.2 % Red Cell Distribution Width 13.4 % Platelet Count 267 TH/MM3 Mean Platelet Volume 7.6 FL Neutrophils (%) (Auto) 58.9 % Lymphocytes (%) (Auto) 30.7 % Monocytes (%) (Auto) 8.5 % Eosinophils (%) (Auto) 1.0 % Basophils (%) (Auto) 0.9 % Neutrophils # (Auto) 3.8 TH/MM3 Lymphocytes # (Auto) 2.0 TH/MM3 Monocytes # (Auto) 0.5 TH/MM3 Eosinophils # (Auto) 0.1 TH/MM3 Basophils # (Auto) 0.1 TH/MM3 CBC Comment DIFF FINAL Differential Comment Blood Urea Nitrogen 15 MG/DL Creatinine 0.78 MG/DL Random Glucose 84 MG/DL Total Protein 8.8 GM/DL Albumin 4.8 GM/DL Calcium Level 9.7 MG/DL Alkaline Phosphatase 108 U/L Aspartate Amino Transf (AST/SGOT) 18 U/L Alanine Aminotransferase (ALT/SGPT) 32 U/L Total Bilirubin 0.9 MG/DL Sodium Level 136 MEQ/L Potassium Level 3.6 MEQ/L Chloride Level 102 MEQ/L Carbon Dioxide Level 23.2 MEQ/L Anion Gap 11 MEQ/L Estimat Glomerular Filtration Rate 76 ML/MIN Lipase 134 U/L [facility] Medical Decision Making Medical Screen Exam Complete: Yes Emergency Medical Condition: Yes Medical Record Reviewed: Yes Interpretation(s) CBC & BMP Diagram 06/12/17 16:34 Total Protein 8.8 H, Albumin 4.8, Calcium Level 9.7, Alkaline Phosphatase 108, Aspartate Amino Transf (AST/SGOT) 18, Alanine Aminotransferase (ALT/SGPT) 32, Total Bilirubin 0.9 Last Impressions Abdomen/Pelvis CT 06/12/17 1803 Signed Impressions: Service Date/Time: Monday, June 12, 2017 19:24 - CONCLUSION: 1. Nonspecific fluid and air in the vagina. An infectious etiology would be in the differential and please correlate clinically. 2. No obstruction or other evidence of an acute inflammatory process. 3. Stable left adrenal nodule and left renal angiomyolipoma. Cal Alvarez MD lipase WNL UA WNL Differential Diagnosis Acute abdomen versus gastroenteritis versus diverticulitis versus vaginal disease Narrative Course 56-year-old female that presents to the ED for evaluation of abdominal pain. Patient was properly examined and was found to have signs and symptoms concerning for acute abdomen. Labs and imaging were ordered. Patient had blood work done before coming into the room and was essentially unremarkable. CT was ordered to rule out any sign of acute disease secondary to her significant medical history. CT was negative for acute disease alert and what appears to be an air-fluid level in the vagina. The recommended clinical correlation and exam. I spoke with the patient in length about this and recommendation for pelvic exam for further eval to see whether this is related to the symptoms. Patient prefer to follow with his doctor to get this checked and prefers to go home stating that she has to get home. She understands that without this test I cannot completely rule out any acute disease. She agrees and understands this. She understands that she can have severe illness if not properly treated. She agrees and understands. AMA: The risks of leaving against medical advice without further evaluation treatment were discussed with the patient. These risks include cardiac dysfunction, cardiac dysrhythmia, possible heart attack, possible stroke or . The patient indicated understanding of these risks and appeared to have the capacity to make this decision. Patient does appear to have symptoms concerning for infectious etiology. She will be started on Flagyl at this time as well as Zofran and tramadol. She was instructed to follow with her doctor tomorrow to have pelvic exam and further evaluation. She agrees and understands this. She understands reasons to come back. See ED worsening symptoms. Follow-up with PCP. Diagnosis Primary Impression: Abdominal pain Qualified Codes: R10.84 - Generalized abdominal pain Additional Impression: Diarrhea Qualified Codes: R19.7 - Diarrhea, unspecified Patient Instructions: General Instructions Departure Forms: Tests/Procedures Additional Instructions: Take medications as prescribed. Follow-up with PCP. See ED if worsening symptoms. Do not drink alcohol while taking pain med. Med/Other Pt SpecificInfo: Prescription(s) given Scripts Tramadol (Tramadol) 50 Mg Tab 50 MG PO Q6H Y for PAIN, #12 TAB 0 Refills Prov: Mary Kate Whittington MD 06/12/17 Ondansetron Odt (Zofran Odt) 4 Mg Tab 4 MG SL Q6HR Y for Nausea/Vomiting, #20 TAB 0 Refills Prov: Mary Kate Whittington MD 06/12/17 Metronidazole (Flagyl) 500 Mg Tab 500 MG PO BID for Infection for 10 Days, #20 TAB 0 Refills Prov: Mary Kate Whittington MD 06/12/17 Disposition: 01 DISCHARGE HOME Condition: Stable Ren Lindquist Jun 12, 2017 20:27
== END 2017-06-12 20:34 | disposition home or self-care (01) ==
LOC: NEPE 15:43
DX: R10.84 Generalized abdominal pain (principal); R19.7 Diarrhea, unspecified; F12.90 Cannabis use, unspecified, uncomplicated; F17.200 Nicotine dependence, unspecified, uncomplicated
CPT/HCPCS: 74177; 80053; 81001; 83690; 85025; 96360; 99284; J2405; J7030; Q9967